=== PATIENT | female | born 1955 | race Caucasian/White ===

== ENCOUNTER → 2021-12-10 | Day surgery (SDC) | payer OTHER ==
[~2021-12-10] VITALS: Ht 167.6 cm; Wt 108.9 kg
[~2021-12-10] MED LIST: AMLODIPINE BESYL5 MG PO; MONTELUKAST SOD10 MG PO; NEXIUM10 MG PO; POTASSIUM CHLO10 ME2 PO; TRAZODONE 100M100 MG PO; TRIAMTERENE-HC1 EAC1 PO; ZYRTEC10 M3 PO
== END | disposition home or self-care (01) ==
LOC: FAS 06:36
DX: K57.30 Diverticulosis of large intestine without perforation or abscess without bleeding (principal); K64.8 Other hemorrhoids; D64.9 Anemia, unspecified; K21.9 Gastro-esophageal reflux disease without esophagitis; K25.9 Gastric ulcer, unspecified as acute or chronic, without hemorrhage or perforation; I10 Essential (primary) hypertension; J45.909 Unspecified asthma, uncomplicated; G47.30 Sleep apnea, unspecified; M19.90 Unspecified osteoarthritis, unspecified site; Z20.822 Contact with and (suspected) exposure to COVID-19; Z88.4 Allergy status to anesthetic agent
CPT/HCPCS: J2405; J2704; J7120; U0002